=== PATIENT | female | born 1995 | race Two or more races ===

== ENCOUNTER 2024-10-09 17:18 | Emergency (ER) | payer MEDICAID, SELFPAY ==
[2024-10-09 17:44] VITALS: BP 145/86; PULSE 75; RESP 18; TEMP 37.1; O2SAT 99; BMI 35.8
--- NOTE | 2024-10-09 17:53 | XR_ITS ---
Examination: CT brain head without contrast. 2-D sagittal coronal reconstructions Date and time of exam:October 09, 2024 1812 hrs. Indications: Status post dental surgery 4 hours ago with vomiting and headache beginning one hour ago CTDI: vol (mGy):47.6 DLP: (mGycm):1000 Technique: Multiple CT axial sections of the brain have been obtained, 5 mm slice thickness. Contrast has not been administered. 2-D sagittal, coronal reconstructions have been obtained Low dose protocols were performed. One or more of the following dose reduction techniques were used; automated exposure control, adjustment of the mA and/or KV according to patient size, use of iterative reconstruction technique. Findings: No significant ventricular enlargement. Intra-axial or extra-axial hemorrhage density is not seen. No mass effect or midline shift Basal cisterns are not remarkable. Fourth ventricle is midline. Cranial vault intact. Fracture posterior lateral wall right maxillary antrum, axial image 42, which extends to the posterior margin of the right maxilla axial image 44, to a mandibular socket Impression: Negative for acute hemorrhage, mass effect or midline shift Acute fracture posterior lateral wall right maxillary antrum extending caudad to the molar socket posterior right maxilla
--- NOTE | 2024-10-09 17:54 | PD.EDRME ---
Rapid Medical Screening Exam RME Arrival date/time: 10/09/24 17:18 29-year-old female presents emergency department complaint of dizziness nausea vomiting status post dental procedure today Chief Complaint: Nausea/Vomiting/Diarrhea Time Seen by Provider: 10/09/24 17:31 Vital signs: Vital Signs Temperature 98.8 F 10/09/24 17:44 Pulse Rate 75 10/09/24 17:44 Respiratory Rate 18 10/09/24 17:44 Blood Pressure 145/86 H 10/09/24 17:44 Pulse Oximetry (%) 99 10/09/24 17:44 Oxygen Delivery Method Room Air 10/09/24 17:44
[2024-10-09 18:40] LABS: Basophils % (Auto) 0 % (0-2.5); Eosinophils % (Auto) 0 % (0-10); Hematocrit 42.5 % (36.0-46.0); Hemoglobin 14.2 g/dL (12.0-16.0); Immature Granulocytes % (Auto) 0 % (0-0); Immature Granulocytes Auto 0.04 Thou/mm3 (0.00-0.00); Lymphocytes # (Auto) 1.5 Thou/mm3 (1.0-4.8); Lymphocytes % (Auto) 12 % (10-50); Mean Corpuscular HGB Conc 33.4 g/dl (31.0-37.0); Mean Corpuscular Hemoglobin 28.7 pg (25.0-35.0); Mean Corpuscular Volume 86 fL (80-100); Monocytes # (Auto) 0.6 Thou/mm3 (0.0-0.8); Monocytes % (Auto) 4 % (0-12); Neutrophils % (Auto) 83 % (37-80); Nucleated Red Blood Cell % 0 /100 WBC (0); Platelet Count 323 Thou/mm3 (140-440); RDW Standard Deviation 39.5 fL (36.4-46.3); Red Blood Count 4.94 Miln/mm3 (4.00-5.20); White Blood Count 13.2 Thou/mm3 (3.6-11.0)
[2024-10-09] MEDS: ONDANSETRON ODT 4 MG TABRAP PO (18:45)
[2024-10-09 18:53] LABS: HCG,Qualitative Serum Negative
[2024-10-09 18:59] LABS: Alanine Aminotransferase 16 U/L (10-49); Albumin, Serum 4.7 gm/dL (3.5-5.0); Albumin/Globulin Ratio 1.7 (1.2-2.2); Alkaline Phosphatase 85 U/L (46-116); Anion Gap 9 (7-16); Aspartate Amino Transferase 14 U/L (0-34); BUN/Creatinine Ratio 10 Ratio (12-20); Bilirubin,Total 0.5 mg/dL (0.3-1.2); Blood Urea Nitrogen 7 mg/dL (9-23); Calcium 9.9 mg/dL (8.3-10.6); Calcium (Corrected) 9.9 mg/dL (8.5-10.1); Carbon Dioxide 27.8 mMol/L (20.0-31.0); Chloride 101 mMol/L (98-107); Creatinine (Component) 0.7 mg/dL (0.6-1.3); Estimated Creatinine Clearance 121.7 mL/min (>60); Globulin 2.8 gm/dL (2.3-3.5); Glucose 102 mg/dL (74-106); Osmolality,Calculated 273 (275-295); Potassium 4.2 mMol/L (3.4-5.1); Sodium 138 mMol/L (136-145); Total Protein 7.5 gm/dL (5.7-8.2); Troponin I < 0.020 ng/mL (0.0-0.045); eGFR > 60 See Note
--- NOTE | 2024-10-09 22:09 | PD.EDNV ---
Nausea/Vomit./Diarrhea-RME/HPI General Chief complaint: Nausea/Vomiting/Diarrhea Stated complaint: VOMITING X 1HR; POST WISDOM TEETH PULLED 4 HRS AGO Time Seen by Provider: 10/09/24 17:31 Arrival date/time: 10/09/24 17:18 RME / HPI RME / HPI Narrative: 10/09/24 17:18 29-year-old female presents emergency department complaint of dizziness nausea vomiting status post dental procedure today Dr. Brock?s Main ED Evaluation: 29yo female presents to the ED for a syncopal episode. Patient states she had all 4 of her wisdom teeth (local anesthesia) taken out today around 1100. She got home at 1330 and took a nap. She states she woke up at 1500 and got up to walk to the table to eat, when she sat down, she states she began having severe dental pain, and the room started spinning and she had blurry vision and passed out while sitting. Her caught her, no falls or injuries. Patient endorses having associated N/V and sweating. She denies any other associated symptoms. No known allergies. Patient has her f/u appointment on 10/23/24. Related Data Previous Rx's ?Medication ?Instructions ?Recorded levothyroxine 150 mcg capsule 150 mcg PO QDAY #90 caps 03/23/24 norgestimate 0.25 mg-ethinyl 1 tab PO QDAY #84 tabs 10/04/24 estradiol 35 mcg tablet (Sprintec (28)) amoxicillin 875 mg-potassium 1 tab PO Q12H maxillary fracture 10/10/24 clavulanate 125 mg tablet 10 days #20 tabs ibuprofen 600 mg tablet 600 mg PO Q6H PRN pain (scale 10/10/24 score 7-10) 5 days #20 tabs Allergies Allergy/AdvReac Type Severity Reaction Status Date / Time No Known Allergies Allergy Verified 10/09/24 17:21 Review of Systems Review of Systems Systems Reviewed: All systems reviewed, normal except as documented Past Medical History Past Medical History NEUROLOGIC: Negative Neurological Disorders CARDIAC: Negative Cardiac Disorders or Congestive Heart Failure RESPIRATORY: Negative Chronic Obstructive Pulmonary Disease (COPD) GASTROINTESTINAL: Negative Gastrointestinal Disorders, Hepatitis or Colorectal Cancer GENITOURINARY: Negative Genitourinary Disorders, Renal Disease or Prostate Cancer REPRODUCTIVE: Positive Previous Pregnancies; Negative Breast Cancer or Testicular Cancer MUSCULOSKELETAL: Negative Musculoskeletal Disorders or Bone Cancer ENDOCRINE: Positive Endocrine Disorders and Hypothyroidism; Negative Diabetes Mellitus Type 1 or Diabetes Mellitus Type 2 HEMATOLOGIC: Negative Blood Disorders OTHER HISTORY: Positive Hospitalization; Negative Autoimmune Disease, Down Syndrome, Developmental Delay, Shingles, Falls, Blood Transfusions, Blood Transfusion Reaction, Anesthesia Reactions, Organ Transplant, Chemotherapy, Radiation Therapy, Hyperbaric Therapy, MRSA, VRSA, Vancomycin-Resistant Enterococci, Human Immunodeficiency Virus (HIV), Chicken Pox, Measles, Mumps, Rubella (Congolese Measles), Pertussis, Clostridium Difficile, Cancer, Breast Cancer, Cervical Cancer, Colorectal Cancer, Lung Cancer, Ovarian Cancer, Prostate Cancer or Testicular Cancer Family History FAMILY HISTORY: Positive Family Cardiac Disorders; Negative Family Psychiatric Problems, Family Respiratory Disorders, Family Gastrointestinal Problems, Family Cancer, Family Surgery or Family Anesthesia Reaction Surgical History SURGICAL: Negative Section or Organ Transplant Social History SMOKING STATUS: Never smoker SECOND HAND EXPOSURE: No ED Exam Narrative Physical exam: GENERAL APPEARANCE: alert and oriented x 4, well-developed, well-nourished, no acute distress VITALS: All vitals were reviewed and the pulse ox is 99% on room air, which is normal according to my interpretation. HEENT: Normocephalic, atraumatic; pupils equal, round, reactive to light; EOMI; mucous membranes pink, moist; good dentition, sutures in place at the wisdom teeth sites without any active bleeding, no surrounding gingival swelling, mild facial swelling, oropharynx clear NECK: Supple LUNGS: CTABL; no wheezes, no rales, no rhonchi, no stridor, no respiratory distress HEART: Regular rate, regular rhythm; normal S1, S2; no murmurs ABDOMEN: non distended; normal BS; soft, no tenderness, no guarding, no rebound; no masses, no organomegaly, no hernia BACK: no CVA tenderness EXTREMITIES: atraumatic; no edema NEUROLOGIC: awake; alert and oriented x4; cranial nerves II-XII grossly intact; no focal sensory or motor deficits PSYCHIATRIC: appropriate mood and affect SKIN: warm, dry, normal color; no rashes Course Course Course Narrative: 0035: Discussed case with [[facility]'s transfer center] regarding possible transfer. Discussed patients ED course, exam findings, labs, and radiology results. Will callback when the maxillofacial specialist is available. 0207: [facility]'s transfer center called back, stating their maxillofacial specialist, Dr. Lorenzo, refused to speak with me. Recommended to start the patient on Augmentin for 10 days, follow-up with her surgeon in the morning, and encourage sinus precautions. Quality Measures none Orders Category Date Time Status CT head/brain wo con Stat Exams 10/09/24 17:53 Completed CBC Stat Lab 10/09/24 18:00 Completed CMP [Comprehensive Metabolic Panel] Stat Lab 10/09/24 18:00 Completed HCG,Qualitative Serum Stat Lab 10/09/24 18:00 Completed Troponin I Stat Lab 10/09/24 18:00 Completed Ondansetron Odt [Zofran Odt] Med 10/09/24 17:53 Discontinued 4 mg PO X1 ONE oxyCODONE/APAP 5/325 [Percocet 5/325] Med 10/09/24 23:32 Discontinued 2 tab PO X1 ONE Vital Signs Vital signs: Vital Signs Temperature 98.8 F 10/09/24 17:44 Pulse Rate 75 10/09/24 17:44 Respiratory Rate 18 10/09/24 17:44 Blood Pressure 145/86 H 10/09/24 17:44 Pulse Oximetry (%) 99 10/09/24 17:44 Oxygen Delivery Method Room Air 10/09/24 17:44 Nausea/Vomiting/Diarrhea Patient data External records reviewed:: [facility] previous records (Per chart review, patient has no relevant previous ED visits or admissions to this facility.) Clinical information provided by:: patient Social determinants that could affect healthcare access:: none Patient has the following chronic illnesses:: none How is presenting disease/condition affected by chronic disease/condition?: no chronic disease Evaluation data The following diagnostics were reviewed and interpreted by me:: lab results and radiology exam(s) Lab and/or radiology exams considered but not ordered:: none Interpretation Summary: WBC count is elevated at 13.2, CMP is normal, troponin is normal, HCG is negative, according to my interpretation. ---- [facility] Report Signed Patient: TRICE ESCOTO Med. Record#: [id number] Birthdate: 1995 Age/Sex: 29 / F Location: [facility] Attending Dr: Ordering Physician: Ryan MAR)Sanjiv NP Date of Service: 10/09/24 Procedure(s): CT head/brain wo con Accession Number(s): [id number] cc: Ryan (VÍCTOR),Sanjiv RENEE; Sammy Ackerman MD; Elizabeth Benito ([facility])~ Examination: CT brain head without contrast. 2-D sagittal coronal reconstructions Date and time of exam:October 09, 2024 1812 hrs. Indications: Status post dental surgery 4 hours ago with vomiting and headache beginning one hour ago CTDI: vol (mGy):47.6 DLP: (mGycm):1000 Technique: Multiple CT axial sections of the brain have been obtained, 5 mm slice thickness. Contrast has not been administered. 2-D sagittal, coronal reconstructions have been obtained Low dose protocols were performed. One or more of the following dose reduction techniques were used; automated exposure control, adjustment of the mA and/or KV according to patient size, use of iterative reconstruction technique. Findings: No significant ventricular enlargement. Intra-axial or extra-axial hemorrhage density is not seen. No mass effect or midline shift Basal cisterns are not remarkable. Fourth ventricle is midline. Cranial vault intact. Fracture posterior lateral wall right maxillary antrum, axial image 42, which extends to the posterior margin of the right maxilla axial image 44, to a mandibular socket Impression: Negative for acute hemorrhage, mass effect or midline shift Acute fracture posterior lateral wall right maxillary antrum extending caudad to the molar socket posterior right maxilla Dictated By: Sammy Ackerman MD Signed By: <Electronically signed by Sammy Ackerman MD in OV> 10/09/24 1922 Medications / Prescriptions Medications / Prescriptions considered but not ordered:: none Medication administrations:: Medication Administration History Discontinued Medications Ondansetron HCl (Ondansetron Odt 4 Mg Tabrap) 4 mg PO X1 ONE; Protocol Stop: 10/09/24 17:54 Last Admin: 10/09/24 18:45 Dose: 4 mg Documented By: KF Oxycodone/Acetaminophen (Oxycodone/Apap 5/325 Tablet) 2 tab PO X1 ONE Stop: 10/09/24 23:33 Last Admin: 10/09/24 23:40 Dose: 2 tab Documented By: DB see above Consultations Consultation(s) initiated? (list below): Yes Diagnosis Nausea Differential Diagnosis: dehydration and other (postop pain, fracture, electrolyte abnormality) Most likely diagnosis given after review of the tests above:: see below Admission Indicated Admission indicated?: not indicated Admission Request Was there a request for admission?: No Disposition Plan Disposition Plan: Discharge Discharge Attestation Discharge Attestation: The patient and all family members were given an opportunity to ask questions and understood the discharge instructions. Discharge instructions specifically effects, indications for sooner follow up or return to the emergency department, and the expected course of current diagnosis. Patient condition: Stable Discharge Plan Plan Patient Disposition: HOME (Self Care) Disposition Comment: Stable for discharge Patient condition on transfer: Stable Prescriptions/Referrals Prescriptions/Med Rec: New amoxicillin-pot clavulanate 875-125 mg tablet 1 tab PO Q12H 10 Days Qty: 20 0RF ibuprofen 600 mg tablet 600 mg PO Q6H PRN (Reason: pain (scale score 7-10)) 5 Days Qty: 20 0RF No Action norgestimate-ethinyl estradiol [Sprintec (28)] 0.25-35 mg-mcg tablet 1 tab PO QDAY Qty: 84 1RF levothyroxine 150 mcg capsule 150 mcg PO QDAY Qty: 90 1RF Referrals: Jigna [facility] [employer],Elizabeth Méndez, [employer] [Primary Care Provider] - In 1 week Problem List Clinical Impression: Maxillary fracture, Vaso vagal episode Patient/Caregiver Discharge Instructions Discharge Activity: activity as tolerated Other Activity Instructions:: Sinus Precautions No Nose blowing. No flying, swimming or deep water submersion. Avoid straining with bowel movements. No strenuous activity or lifting/pushing objects weighing more than 20 pounds. Sleep with your head elevated on 2 pillows. No smoking/vaping. Education Materials: What Is Syncope?, Facial Fracture, Understanding Vasovagal Syncope Additional Instructions: It is really important that you follow-up with your dentist tomorrow morning. You have a fracture in your right maxilla which is related to the tooth extraction. If you have any difficulty being seen by him tomorrow he should come back to the emergency department Please return to the ER if he noticed any worsening or any further medical problem There are prescriptions waiting for you at your pharmacy. Please include an antibiotic which you should take twice a day until they are completely gone. You should take the Motrin and Tylenol at the same time every 6 hours for pain. Debido a la estrecha relaci?n entre los dientes posteriores de arriba y la cavidad sinusal, christy comunicaci?n entre la cavidad sinusal y la boca puede resultar debido a la cirug?a. Larry complicaci?n se rachel producido y a menudo se reggie lentamente y con dificultad. Ciertas precauciones ayudaran la curaci?n y le pedimos que siga estas instrucciones fielmente. ? [place] los medicamentos prescritos armando se le indicaron. ? No escupa con fuerza jose varios d?as. ? No fume jose varios d?as. ? No utilice pitillos/ pajas (straws) jose varios d?as. ? No se sople con fuerza la nariz jose al menos dos semanas a pesar de que hernandez cavidad nasal se sienta tapada o tenga alg?n drenaje. ? Trate de no estornudar, esto causara presi?n en la cavidad sinusal. Si tiene que estornudar mantenga la boca abierta. ? Coma alimentos suaves jose varios d?as, siempre tratando de masticar en el lado opuesto de la boca. ? No carey enjuagues bucales jose dos semanas. ? Mantenga la manisha elevada con dos almohadas al acostarse. Print Language: Danish Stand Alone Forms: [employer] Award Info., Patient Portal Info Letter
--- NOTE | 2024-10-09 22:24 | PD.EDRME ---
Rapid Medical Screening Exam RME Arrival date/time: 10/09/24 17:18 10/09/24 17:18 29-year-old female presents emergency department complaint of dizziness nausea vomiting status post dental procedure today Chief Complaint: Nausea/Vomiting/Diarrhea Time Seen by Provider: 10/09/24 17:31 Vital signs: Vital Signs Temperature 98.8 F 10/09/24 17:44 Pulse Rate 75 10/09/24 17:44 Respiratory Rate 18 10/09/24 17:44 Blood Pressure 145/86 H 10/09/24 17:44 Pulse Oximetry (%) 99 10/09/24 17:44 Oxygen Delivery Method Room Air 10/09/24 17:44 RME Narrative: 10/09/24 17:18 29-year-old female presents emergency department complaint of dizziness nausea vomiting status post dental procedure today
[2024-10-09 23:00] VITALS: BP 141/91; PULSE 82; RESP 16; TEMP 37.4; O2SAT 98
--- NOTE | 2024-10-09 23:09 | PC.NURSE ---
I CALLED [facility] AND SPOKE WITH ABDI AND INFORMED HER I FAXED OVER A PACKET FOR A POSSIBLE OMFS TRANSFER.
[2024-10-09] MEDS: oxyCODONE/APAP 5/325 TABLET 2 TAB PO (23:40)
--- NOTE | 2024-10-10 00:35 | PC.NURSE ---
DR. CHOPRA IS ON THE PHONE AT THIS TIME WITH [facility].
[2024-10-10 02:42] VITALS: BP 151/92; PULSE 74; RESP 16; TEMP 36.7; O2SAT 99
== END 2024-10-10 02:33 | disposition home or self-care (01) ==
PROVIDERS: Nurse Practitioner Primary Care; Emergency Provider Emergency Medicine; PCP Nurse Practitioner Family
DX: S02.40CA Maxillary fracture, right side, initial encounter for closed fracture (principal); X58.XXXA Exposure to other specified factors, initial encounter
CPT/HCPCS: 36415; 70450; 80053; 84484; 84703; 85025; 99284; Q0162; A9270

== ENCOUNTER → 2024-10-16 | Outpatient (BNVA) | payer MEDICAID, SELFPAY | END | disposition home or self-care (01) | PROVIDERS: PCP Nurse Practitioner Family; Referring Provider Nurse Practitioner Family; Visit Provider Nurse Practitioner Family | DX: Z71.2 Person consulting for explanation of examination or test findings (principal) | CPT/HCPCS: 99214 ==

== ENCOUNTER → 2024-11-15 | Outpatient (BNVA) | payer MEDICAID, SELFPAY | END | disposition home or self-care (01) | PROVIDERS: PCP Nurse Practitioner Family; Referring Provider Nurse Practitioner Family; Visit Provider Nurse Practitioner Family | DX: J02.8 Acute pharyngitis due to other specified organisms (principal); E03.9 Hypothyroidism, unspecified; J06.9 Acute upper respiratory infection, unspecified | CPT/HCPCS: 87804; 87811; 99213; 99214 ==

== ENCOUNTER → 2024-12-21 | Outpatient (BNVA) | payer MEDICAID, SELFPAY | END | disposition home or self-care (01) | PROVIDERS: PCP Nurse Practitioner Family; Referring Provider Nurse Practitioner Family; Visit Provider Nurse Practitioner Family | DX: Z00.01 Encounter for general adult medical examination with abnormal findings (principal); B35.2 Tinea manuum; E78.5 Hyperlipidemia, unspecified; E55.9 Vitamin D deficiency, unspecified; E66.9 Obesity, unspecified; Z68.30 Body mass index [BMI] 30.0-30.9, adult; E03.8 Other specified hypothyroidism; Z13.1 Encounter for screening for diabetes mellitus; Z11.3 Encounter for screening for infections with a predominantly sexual mode of transmission | CPT/HCPCS: 99215 ==

== ENCOUNTER → 2025-01-24 | Outpatient (BNVA) | payer MEDICAID, SELFPAY | END | disposition home or self-care (01) | PROVIDERS: PCP Nurse Practitioner Family; Referring Provider Nurse Practitioner Family; Visit Provider Nurse Practitioner Family | DX: J30.2 Other seasonal allergic rhinitis (principal) | CPT/HCPCS: 96372; 99213; J3301 ==

== ENCOUNTER → 2025-02-27 | Outpatient (BNVA) | payer MEDICAID, SELFPAY | END | disposition home or self-care (01) | PROVIDERS: PCP Nurse Practitioner Family; Referring Provider Nurse Practitioner Family; Visit Provider Nurse Practitioner Family | DX: Z23 Encounter for immunization (principal); S61.210A Laceration without foreign body of right index finger without damage to nail, initial encounter | CPT/HCPCS: 90471; 90715; 99213 ==

== ENCOUNTER → 2025-03-15 | Outpatient (BNVA) | payer MEDICAID, SELFPAY | END | disposition home or self-care (01) | PROVIDERS: PCP Nurse Practitioner Family; Referring Provider Nurse Practitioner Family; Visit Provider Nurse Practitioner Family | DX: J20.9 Acute bronchitis, unspecified (principal) | CPT/HCPCS: 99213 ==

== ENCOUNTER → 2025-03-21 | Outpatient (BNVA) | payer MEDICAID, SELFPAY | END | disposition home or self-care (01) | PROVIDERS: PCP Nurse Practitioner Family; Referring Provider Nurse Practitioner Family; Visit Provider Nurse Practitioner Family | DX: Z30.011 Encounter for initial prescription of contraceptive pills (principal) | CPT/HCPCS: 81025; 99214 ==

== ENCOUNTER → 2025-03-25 | Outpatient (BNVA) | payer MEDICAID, SELFPAY | END | disposition home or self-care (01) | PROVIDERS: PCP Nurse Practitioner Family; Referring Provider Nurse Practitioner Family; Visit Provider Nurse Practitioner Family | DX: Z71.2 Person consulting for explanation of examination or test findings (principal); N39.0 Urinary tract infection, site not specified; E78.5 Hyperlipidemia, unspecified; E03.9 Hypothyroidism, unspecified | CPT/HCPCS: 99212; G0463 ==

== ENCOUNTER → 2025-03-29 | Outpatient (BNVA) | payer MEDICAID, SELFPAY | END | disposition home or self-care (01) | PROVIDERS: PCP Nurse Practitioner Family; Referring Provider Nurse Practitioner Family; Visit Provider Nurse Practitioner Family | DX: T78.40XA Allergy, unspecified, initial encounter (principal); N39.0 Urinary tract infection, site not specified | CPT/HCPCS: 96372; 99213; J1200; J2919 ==

== ENCOUNTER → 2025-04-05 | Outpatient (BNVA) | payer MEDICAID, SELFPAY | END | disposition home or self-care (01) | PROVIDERS: PCP Nurse Practitioner Family; Referring Provider Nurse Practitioner Family; Visit Provider Nurse Practitioner Family | DX: Z13.9 Encounter for screening, unspecified (principal); Z13.220 Encounter for screening for lipoid disorders; Z13.29 Encounter for screening for other suspected endocrine disorder; Z00.01 Encounter for general adult medical examination with abnormal findings; R53.83 Other fatigue; Z11.3 Encounter for screening for infections with a predominantly sexual mode of transmission; Z68.37 Body mass index [BMI] 37.0-37.9, adult ==

== ENCOUNTER → 2025-04-09 | Outpatient (BNVA) | payer MEDICAID, SELFPAY | END | disposition home or self-care (01) | PROVIDERS: PCP Nurse Practitioner Family; Referring Provider Nurse Practitioner Family; Visit Provider Nurse Practitioner Family | DX: Z71.2 Person consulting for explanation of examination or test findings (principal); N39.0 Urinary tract infection, site not specified | CPT/HCPCS: 99212; G0463 ==

== ENCOUNTER → 2025-05-09 | Outpatient (BNVA) | payer MEDICAID, SELFPAY | END | disposition home or self-care (01) | PROVIDERS: PCP Nurse Practitioner Family; Referring Provider Nurse Practitioner Family; Visit Provider Nurse Practitioner Family | DX: M25.562 Pain in left knee (principal); M25.561 Pain in right knee | CPT/HCPCS: 81025; 96372; 99214; J1885 ==

== ENCOUNTER → 2025-05-10 | Outpatient (CLI) | payer MEDICAID, SELFPAY ==
--- NOTE | 2025-05-10 15:41 | XR_ITS ---
Examination: Knee bilateral, 8 views Technique: Knee AP, lateral, oblique, axial H knee total 8 views Date and time of exam: May 10, 2025 1541 hours INDICATIONS: Knee pain one week. FINDINGS: Adequate bone density. No fracture or dislocation involving either knee No erosive or other arthritic change involving either knee IMPRESSION: Negative for osseous abnormalities
== END | disposition home or self-care (01) ==
LOC: CDIM 15:27
PROVIDERS: Referring Provider Nurse Practitioner Family; Visit Provider Nurse Practitioner Family
DX: M25.561 Pain in right knee (principal); M25.562 Pain in left knee
CPT/HCPCS: 73564

== ENCOUNTER → 2025-05-13 | Outpatient (BNVA) | payer MEDICAID, SELFPAY | END | disposition home or self-care (01) | PROVIDERS: PCP Nurse Practitioner Family; Referring Provider Nurse Practitioner Family; Visit Provider Nurse Practitioner Family | DX: Z71.2 Person consulting for explanation of examination or test findings (principal); M25.562 Pain in left knee; M25.561 Pain in right knee | CPT/HCPCS: 99212; G0463 ==

== ENCOUNTER → 2025-05-15 | Outpatient (BNVA) | payer MEDICAID, SELFPAY | END | disposition home or self-care (01) | PROVIDERS: PCP Nurse Practitioner Family; Referring Provider Nurse Practitioner Family; Visit Provider Nurse Practitioner Family | DX: Z12.4 Encounter for screening for malignant neoplasm of cervix (principal); N76.0 Acute vaginitis; R31.9 Hematuria, unspecified | CPT/HCPCS: 81001; 81025; 99215; Q0091 ==

== ENCOUNTER → 2025-05-27 | Outpatient (BNVA) | payer MEDICAID, SELFPAY | END | disposition home or self-care (01) | PROVIDERS: PCP Nurse Practitioner Family; Referring Provider Nurse Practitioner Family; Visit Provider Nurse Practitioner Family | DX: Z71.2 Person consulting for explanation of examination or test findings (principal); Z12.4 Encounter for screening for malignant neoplasm of cervix | CPT/HCPCS: 99212; G0463 ==

== ENCOUNTER → 2025-05-29 | Outpatient (BNVA) | payer MEDICAID, SELFPAY | END | disposition home or self-care (01) | PROVIDERS: PCP Nurse Practitioner Family; Referring Provider Nurse Practitioner Family; Visit Provider Nurse Practitioner Family | DX: Z71.2 Person consulting for explanation of examination or test findings (principal); N76.0 Acute vaginitis | CPT/HCPCS: 99212; G0463 ==

== ENCOUNTER → 2025-05-31 | Outpatient (BNVA) | payer MEDICAID, SELFPAY | END | disposition home or self-care (01) | PROVIDERS: PCP Nurse Practitioner Family; Referring Provider Nurse Practitioner Family; Visit Provider Nurse Practitioner Primary Care | DX: M25.562 Pain in left knee (principal) | CPT/HCPCS: 99213 ==

== ENCOUNTER → 2025-06-13 | Outpatient (BNVA) | payer MEDICAID, SELFPAY | END | disposition home or self-care (01) | PROVIDERS: PCP Nurse Practitioner Family; Referring Provider Nurse Practitioner Family; Visit Provider Nurse Practitioner Family | DX: R10.13 Epigastric pain (principal); Z30.019 Encounter for initial prescription of contraceptives, unspecified | CPT/HCPCS: 99214 ==

== ENCOUNTER → 2025-06-18 | Outpatient (BNVA) | payer MEDICAID, SELFPAY | END | disposition home or self-care (01) | PROVIDERS: PCP Nurse Practitioner Family; Referring Provider Nurse Practitioner Family; Visit Provider Nurse Practitioner Family | DX: Z71.2 Person consulting for explanation of examination or test findings (principal); K29.50 Unspecified chronic gastritis without bleeding | CPT/HCPCS: 99212; G0463 ==

== ENCOUNTER → 2025-06-20 | Outpatient (BNVA) | payer MEDICAID, SELFPAY | END | disposition home or self-care (01) | PROVIDERS: PCP Nurse Practitioner Family; Referring Provider Nurse Practitioner Family; Visit Provider Nurse Practitioner Family | DX: M25.562 Pain in left knee (principal); M25.561 Pain in right knee | CPT/HCPCS: 99212; G0463 ==

== ENCOUNTER → 2025-08-02 | Outpatient (BNVA) | payer MEDICAID, SELFPAY | END | disposition home or self-care (01) | PROVIDERS: PCP Nurse Practitioner Family; Referring Provider Nurse Practitioner Family; Visit Provider Nurse Practitioner Family | DX: J20.9 Acute bronchitis, unspecified (principal) | CPT/HCPCS: 87804; 87811; 99213 ==

== ENCOUNTER → 2025-08-09 | Outpatient (BNVA) | payer MEDICAID, SELFPAY | END | disposition home or self-care (01) | PROVIDERS: PCP Nurse Practitioner Family; Referring Provider Nurse Practitioner Family; Visit Provider Nurse Practitioner Family | DX: J20.9 Acute bronchitis, unspecified (principal) | CPT/HCPCS: 99212; G0463 ==

== ENCOUNTER → 2025-08-26 | Outpatient (BNVA) | payer MEDICAID, SELFPAY | END | disposition home or self-care (01) | PROVIDERS: PCP Nurse Practitioner Family; Referring Provider Nurse Practitioner Family; Visit Provider Nurse Practitioner Family | DX: E03.9 Hypothyroidism, unspecified (principal); Z23 Encounter for immunization; Z71.3 Dietary counseling and surveillance; E66.9 Obesity, unspecified; Z68.37 Body mass index [BMI] 37.0-37.9, adult | CPT/HCPCS: 90471; 90686; 99214 ==

== ENCOUNTER → 2025-08-27 | Outpatient (BNVA) | payer MEDICAID, SELFPAY | END | disposition home or self-care (01) | PROVIDERS: PCP Nurse Practitioner Family; Referring Provider Nurse Practitioner Family; Visit Provider Nurse Practitioner Family | DX: M25.562 Pain in left knee (principal) | CPT/HCPCS: J3301; J3490 ==

== ENCOUNTER → 2025-09-12 | Outpatient (BNVA) | payer MEDICAID, SELFPAY | END | disposition home or self-care (01) | PROVIDERS: PCP Nurse Practitioner Family; Referring Provider Nurse Practitioner Family; Visit Provider Nurse Practitioner Family | DX: Z71.2 Person consulting for explanation of examination or test findings (principal); E66.9 Obesity, unspecified; E03.9 Hypothyroidism, unspecified; Z68.36 Body mass index [BMI] 36.0-36.9, adult | CPT/HCPCS: 99213 ==

== ENCOUNTER → 2025-10-18 | Outpatient (BNVA) | payer MEDICAID, SELFPAY | END | disposition home or self-care (01) | PROVIDERS: PCP Nurse Practitioner Primary Care; Referring Provider Nurse Practitioner Primary Care; Visit Provider Nurse Practitioner Primary Care | DX: E03.9 Hypothyroidism, unspecified (principal); Z30.41 Encounter for surveillance of contraceptive pills | CPT/HCPCS: 99214 ==

== ENCOUNTER → 2025-10-21 | Outpatient (BNVA) | payer MEDICAID, SELFPAY | END | disposition home or self-care (01) | PROVIDERS: PCP Nurse Practitioner Primary Care; Referring Provider Nurse Practitioner Primary Care; Visit Provider Nurse Practitioner Primary Care | DX: E03.9 Hypothyroidism, unspecified (principal) | CPT/HCPCS: 90471; 99212; G0008; G0463 ==